=== PATIENT | female | born 1950 | race Caucasian/White ===

== ENCOUNTER → 2016-10-27 | Outpatient (CLI) | payer OTHER | LOC: KOH-I 09:48 | DX: J06.9 Acute upper respiratory infection, unspecified (principal); J43.9 Emphysema, unspecified | CPT/HCPCS: 71020 ==

== ENCOUNTER 2022-01-12 07:33 | Inpatient (IN) | payer MEDICARE ==
[~2022-01-12] VITALS: Ht 165.1 cm; Wt 113.9 kg
[~2022-01-12 07:33] MED LIST: ADVAIR 500-501 EACH INH; ALBUTEROL2.5 MG/3 M INH; AMBIEN10 MG PO; ASPIRIN EC81 MG PO; AUGMENTIN 875-1 EACH PO; BREO ELLIPTA 21 EACH INH; CATAPRES 0.1MG0.1 MG PO; CELEXA20 MG PO; COLACE100 MG PO; DALIRESP 500500 MCG PO; DEXILANT60 MG PO; DOXYCYCLINE HY100 MG PO; ECOTRIN81 MG PO; ELIQUIS5 MG PO; FLONASE 0.05% N16 GM; HYDRALAZINE HCL25 MG PO; HYDROCHLOROTH12.5 M1 PO; IPRAT-ALBUT 0.5-3 ML INH; LASIX 40 MG TAB40 MG PO; LASIX40 MG PO; LASIX80 MG PO; LIVALO4 MG PO; MAALOX PLUS 3030 ML PO; MECLIZINE HCL25 MG PO; MEDROL DOSEPAK 24 MG PO; MEDROL4 MG PO; METOPROLOL TART25 MG PO; MIRTAZAPINE7.5 MG PO; MONTELUKAST SOD10 MG PO; NAPROSYN500 MG PO; NITROSTAT 0.40.4 MG SL; NITROSTAT0.4 MG SL; OMNICEF 300 MG300 MG PO; PANTOPRAZOLE SO40 MG PO; PRAVACHOL20 MG PO; RANEXA500 MG PO; ROBAXIN 750 MG750 MG PO; SEEBRI NEOHALER (WIT INH; SPIRIVA HANDIH18 MCG INH; SPIRIVA18 MCG INH; TENORMIN 50 MG50 MG PO; TRELEGY ELLIPT1 EACH INH; VALIUM 2 MG TAB2 MG PO; VENTOLIN HFA 66.7 GM INH; VERAPAMIL ER P300 MG PO; XOPENEX HFA15 GM INH; XOPENEX1.25 MG/3 INH
[2022-01-12 08:01] LABS: RED BLOOD COUNT 4.3 M/UL (4.00-5.10); WHITE BLOOD COUNT 9.2 K/UL (4.5-11.0)
[2022-01-12 08:25] LABS: BUN/CREATININE RATIO 14 (0-10)
[2022-01-12] MEDS ORDERED: DIAZEPAM2 MG PO (11:00)
[2022-01-12] MEDS ORDERED: TRAZODONE HCL50 MG PO (11:03)
[2022-01-12] MEDS ORDERED: HYDROCHLOROTH12.5 M1 PO (11:03)
[2022-01-12] MEDS ORDERED: IPRAT-ALBUT 0.5-3 ML INH (11:03)
[2022-01-12] MEDS ORDERED: DRISDOL1250 MCG PO (11:03)
[2022-01-12] MEDS ORDERED: TRELEGY ELLIPT1 EACH INH (11:04)
[2022-01-12] MEDS ORDERED: CRESTOR20 MG PO (12:22)
[2022-01-12] MEDS ORDERED: VERAPAMIL ER P300 MG PO (12:23)
[2022-01-13 04:34] LABS: HEMOGLOBIN 11.2 gm/dl (12.3-15.3); RED BLOOD COUNT 4.03 M/UL (4.00-5.10); WHITE BLOOD COUNT 8.8 K/UL (4.5-11.0)
[2022-01-13 08:00] LABS: BUN/CREATININE RATIO 22 (0-10)
[2022-01-14 06:33] LABS: HEMOGLOBIN 11.7 gm/dl (12.3-15.3); RED BLOOD COUNT 4.24 M/UL (4.00-5.10)
[2022-01-14 07:06] LABS: WHITE BLOOD COUNT 11.9 K/UL (4.5-11.0)
[2022-01-15 07:46] LABS: HEMOGLOBIN 12.3 gm/dl (12.3-15.3); RED BLOOD COUNT 4.51 M/UL (4.00-5.10)
[2022-01-15 08:07] LABS: BUN/CREATININE RATIO 25 (0-10)
[2022-01-15] MEDS ORDERED: AMOXICILLIN500 MG PO (11:21)
[2022-01-15] MEDS ORDERED: HUMIBID LA TAB600 MG PO (11:21)
[2022-01-15] MEDS ORDERED: DULCOLAX5 MG PO (11:21)
[2022-01-15] MEDS ORDERED: POLYETHYLENE GL17 GM PO (11:21)
[2022-01-15] MEDS ORDERED: HYDROCHLOROTH12.5 M1 PO (11:21)
[2022-01-15] MEDS ORDERED: LASIX 40 MG TAB40 MG PO (11:21)
== END 2022-01-15 14:36 | disposition home or self-care (01) | DRG 291 ==
LOC: ER1 07:33 → M/S 09:52 → CDU 09:52 → M/S 09:52
PROVIDERS: Internal Medicine; Nurse Practitioner; Physician Assistant Medical; ADMIT Internal Medicine
PROC: B24BZZZ Ultrasonography of Heart with Aorta (ICD-10-PCS; principal; 2022-01-12)
DX: I11.0 Hypertensive heart disease with heart failure (principal); J96.21 Acute and chronic respiratory failure with hypoxia; I50.33 Acute on chronic diastolic (congestive) heart failure; Z20.822 Contact with and (suspected) exposure to COVID-19; N39.0 Urinary tract infection, site not specified; A04.72 Enterocolitis due to Clostridium difficile, not specified as recurrent; Z68.1 Body mass index [BMI] 19.9 or less, adult; J44.1 Chronic obstructive pulmonary disease with (acute) exacerbation; I25.10 Atherosclerotic heart disease of native coronary artery without angina pectoris; E66.01 Morbid (severe) obesity due to excess calories; I07.1 Rheumatic tricuspid insufficiency; I27.20 Pulmonary hypertension, unspecified; I48.0 Paroxysmal atrial fibrillation; I49.5 Sick sinus syndrome; B95.2 Enterococcus as the cause of diseases classified elsewhere; Z79.01 Long term (current) use of anticoagulants; Z95.0 Presence of cardiac pacemaker; Z95.1 Presence of aortocoronary bypass graft; Z79.82 Long term (current) use of aspirin; Z95.5 Presence of coronary angioplasty implant and graft; Z88.1 Allergy status to other antibiotic agents; Z88.8 Allergy status to other drugs, medicaments and biological substances; Z87.891 Personal history of nicotine dependence; Z82.49 Family history of ischemic heart disease and other diseases of the circulatory system; I25.2 Old myocardial infarction
CPT/HCPCS: ECHO; 36415; 36600; 71045; 74230; 76536; 80048; 80053; 81001; 82550; 82553; 82803; 83036; 83605; 83735; 83880; 84100; 84439; 84443; 84484; 85025; 85027; 85610; 85730; 87040; 87077; 87086; 87186; 92526; 92610; 93005; 93306; 94640; 94664; 94760; 96374; 96375; 96376; 97161; 99285; G0378; J0696; J1120; J1335; J1940; J2930

== ENCOUNTER 2022-03-18 01:26 | Inpatient (IN) | payer MEDICARE ==
[~2022-03-18] VITALS: Ht 165.1 cm; Wt 110.7 kg
[~2022-03-18 01:26] MED LIST changes: +AMOXICILLIN500 MG PO; +CRESTOR20 MG PO; +DIAZEPAM2 MG PO; +DRISDOL1250 MCG PO; +DULCOLAX5 MG PO; +HUMIBID LA TAB600 MG PO; +POLYETHYLENE GL17 GM PO; +TRAZODONE HCL50 MG PO
[2022-03-18 02:20] LABS: HEMOGLOBIN 11.9 gm/dl (12.3-15.3); RED BLOOD COUNT 4.21 M/UL (4.00-5.10)
[2022-03-18 02:51] LABS: BUN/CREATININE RATIO 19 (0-10)
[2022-03-18] MEDS ORDERED: FUROSEMIDE40 MG PO (09:36)
[2022-03-18] MEDS ORDERED: HYDROCHLOROTHIA25 MG PO (09:37)
[2022-03-19 03:43] LABS: HEMOGLOBIN 10.6 gm/dl (12.3-15.3); RED BLOOD COUNT 3.79 M/UL (4.00-5.10)
[2022-03-19 03:44] LABS: WHITE BLOOD COUNT 8.8 K/UL (4.5-11.0)
[2022-03-19 04:18] LABS: BUN/CREATININE RATIO 22 (0-10)
[2022-03-20 06:35] LABS: HEMOGLOBIN 10.9 gm/dl (12.3-15.3); RED BLOOD COUNT 3.87 M/UL (4.00-5.10)
[2022-03-20 06:36] LABS: WHITE BLOOD COUNT 13.3 K/UL (4.5-11.0)
[2022-03-20 06:54] LABS: BUN/CREATININE RATIO 22 (0-10)
[2022-03-20] MEDS ORDERED: MEDROL DOSEPAK 24 MG PO (08:22)
[2022-03-20] MEDS ORDERED: DOXYCYCLINE HY100 MG PO (08:22)
== END 2022-03-20 10:52 | disposition home or self-care (01) | DRG 193 ==
LOC: ER1 01:26 → CDU 03:57 → MED SURG 4 10:01
PROVIDERS: Internal Medicine; Physician Assistant; ADMIT Internal Medicine
DX: J18.9 Pneumonia, unspecified organism (principal); J96.21 Acute and chronic respiratory failure with hypoxia; J96.22 Acute and chronic respiratory failure with hypercapnia; Z20.822 Contact with and (suspected) exposure to COVID-19; I50.32 Chronic diastolic (congestive) heart failure; Z68.41 Body mass index [BMI] 40.0-44.9, adult; J44.0 Chronic obstructive pulmonary disease with (acute) lower respiratory infection; J44.1 Chronic obstructive pulmonary disease with (acute) exacerbation; R04.2 Hemoptysis; G47.33 Obstructive sleep apnea (adult) (pediatric); I11.0 Hypertensive heart disease with heart failure; I48.0 Paroxysmal atrial fibrillation; K21.9 Gastro-esophageal reflux disease without esophagitis; I25.10 Atherosclerotic heart disease of native coronary artery without angina pectoris; I49.5 Sick sinus syndrome; E66.01 Morbid (severe) obesity due to excess calories; Z79.01 Long term (current) use of anticoagulants; Z88.1 Allergy status to other antibiotic agents; Z95.1 Presence of aortocoronary bypass graft; Z95.0 Presence of cardiac pacemaker; Z87.891 Personal history of nicotine dependence; Z82.49 Family history of ischemic heart disease and other diseases of the circulatory system; Z88.8 Allergy status to other drugs, medicaments and biological substances; Z88.6 Allergy status to analgesic agent; Z86.73 Personal history of transient ischemic attack (TIA), and cerebral infarction without residual deficits
CPT/HCPCS: 0240U; 36415; 71045; 71250; 80053; 82550; 82553; 82800; 83605; 83735; 83880; 84100; 84439; 84443; 84484; 85025; 85027; 87040; 93005; 94640; 94664; 94760; 96374; 96375; 96376; 97161; 97166; 97530; 99285; J2543; J2920; J3370; J7030; J7070